=== PATIENT | male | born 1970 | race Caucasian/White ===

== ENCOUNTER 2024-12-07 13:46 | Emergency (ER) | payer MEDICAID, SELFPAY ==
[2024-12-07 14:08] VITALS: BP 127/83; PULSE 65; TEMP 36.8; O2SAT 100; BMI 23.6
--- NOTE | 2024-12-07 14:27 | XRR_ITS ---
PROCEDURE INFORMATION: Exam: XR Lumbosacral Spine Exam date and time: 12/07/2024 2:39 PM Age: 54 years old Clinical indication: Low back pain TECHNIQUE: Imaging protocol: Radiologic exam of the lumbosacral spine. Views: 2 or 3 views. COMPARISON: No relevant prior studies available. FINDINGS: Bones/joints: Spinal alignment is normal. Vertebral body height is maintained. Intervertebral disc height is maintained. Mild to moderate lower lumbar facet spondylosis. No acute fracture. The visible portion of the pelvis and sacrum is intact. Visible portions of the ribs are intact. Soft tissues: Visible soft tissues are unremarkable. XR/XR lumbar spine 2-3V* [id number] IMPRESSION: Lower lumbar facet degeneration.
--- NOTE | 2024-12-07 14:27 | W.ED.BACK ---
HPI - Back Pain/Injury General: Chief Complaint: Back Pain/Injury Stated Complaint: lower back pain Time Seen by Provider: 12/07/24 14:18 Source: patient and family Mode of arrival: ambulatory Limitations: no limitations History of Present Illness: Patient is a 54-year-old male who presents to ED today with complaint of low back pain. Patient states he first began noticing intermittent lower back discomfort approximately a year ago he feels like over the last several weeks pain has progressively worsened to where now he has constant discomfort. He states he tosses and turns all night due to significant pain in his lower back. He states he is normally very active and lower back pain has limited this. He is not having any radicular discomforts into his buttocks or lower extremities. He has not had any recent injury or trauma. Patient states he has been taking large amounts of ibuprofen without any relief in his discomfort. Patient states he does not have a primary care provider that he sees and is requesting one today. Onset (ago): week(s) Timing: constant Severity: severe Similar Symptoms Previously: Yes Location: lumbar spine Radiation: none Exacerbating factors: movement Relieving factors: none Associated symptoms: Reports no associated symptoms; Deny abdominal pain, difficulty walking, dysuria, fever(s) or hematuria Work related injury: No Related Data Previous Rx's Medication Instructions Recorded hydrocodone 5 mg-acetaminophen 325 1 tab PO Q6H PRN pain #14 tabs 12/07/24 mg tablet methylprednisolone 4 mg tablets in See Rx Instructions PO .COMPLEX 12/07/24 a dose pack (Medrol (Zion)) #21 ea Allergies Allergy/AdvReac Type Severity Reaction Status Date / Time erythromycin base Allergy ADR-Gastrointestinal Verified 12/07/24 14:14 Upset Review of Systems Const: Denies: fever(s) Card: Denies: chest pain Resp: Denies: dyspnea GI: Denies: abdominal pain : Denies: flank pain, dysuria or hematuria Musc: Reports: back pain; Denies: neck pain, extremity pain, extremity swelling, joint pain or joint swelling Neuro: Denies: numbness in extremities, weakness in extremities, sensory changes or difficulty walking Physical Exam Const: COMMON NORMALS: no acute distress, average body habitus, patient oriented x3, no limitations, healthy appearing, alert and well nourished GI: COMMON NORMALS: Normal to inspection, nondistended, normoactive bowel sounds present, Soft to palpation, non-tender and no masses PALPATION: Yes Soft to palpation : COMMON NORMALS: Yes no CVA tenderness BLADDER/KIDNEY EXAM: Yes no CVA tenderness Back/Pelvis: COMMON NORMALS: no CVA tenderness, thoracic and lumbar spine normal to inspection, thoraco-lumbar ROM normal and straight leg raise negative bilaterally LUMBAR SPINE/LOWER BACK: Yes lumbar spinal tenderness, No paraspinal muscle spasm and Yes straight leg raise negative bilaterally PELVIS: Yes buttocks normal and No sciatic notch tenderness SACROILIAC JOINTS: Yes SI joints normal SACRUM: no tenderness COCCYX: no tenderness Extremity: GENERAL: Yes normal exam except as noted Neuro: COMMON NORMALS: patient oriented x3, moves all extremities, no focal motor deficits, no sensory deficits noted and gait normal SENSORIUM/ORIENTATION: Yes alert GAIT: Yes Normal gait present MOTOR EXAM: 5/5 motor strength present throughout Course Vital Signs: Vital signs: Vital Signs Temperature 98.2 F 12/07/24 14:08 Pulse Rate 65 12/07/24 14:08 Blood Pressure 127/83 12/07/24 14:08 Pulse Oximetry 100 12/07/24 14:08 Oxygen Delivery Me thod Room Air 12/07/24 14:08 MDM - Back Pain/Injury Medical Decision Making Patient here for acute on chronic lower back pain. X-ray of his lumbar spine showing mild to moderate lower lumbar facet spondylosis. Patient states he has been taking large amounts of anti-inflammatories without any relief. He is requesting something that he can take mainly at night to help him rest. Will try steroids and give him a small amount of pain medication. I will have case management set him up with a primary care provider for further evaluation and treatment of his lower back pain. Return precautions discussed. Labs Radiology Impressions Lumbar Spine X-Ray 12/07/24 14:27 IMPRESSION: Lower lumbar facet degeneration. All radiology interpretation(s) finalized by discharge Discharge Plan Discharge Patient Disposition: Home Clinical Impression: Facet degeneration of lumbar region Condition: Stable Prescriptions: New hydrocodone-acetaminophen 5-325 mg tablet 1 tab PO Q6H PRN (Reason: pain) Qty: 14 0RF methylprednisolone [Medrol (Zion)] 4 mg tablets,dose pack See Rx Instructions .ROUTE .COMPLEX Qty: 21 0RF Rx Instructions: orally per package directions Discharge Orders: Discharge ED (Routine); Ordered 12/07/24 Ordered By: Gloria Bailon Patient Instructions: Opioid Safety, Pain Management Activity Restrictions/Additional Instructions: As we discussed, we will have you follow-up with primary care for further evaluation and treatment options regarding your lower back pain. 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
[2024-12-07 15:28] VITALS: BP 116/66; PULSE 58; O2SAT 97
--- NOTE | 2024-12-09 07:19 | DCPLANNER ---
messaged luiz to [facility] pcp
== END 2024-12-07 15:29 | disposition home or self-care (01) ==
PROVIDERS: Emergency Provider Physician Assistant
DX: M47.816 Spondylosis without myelopathy or radiculopathy, lumbar region (principal)
CPT/HCPCS: 72100; 99283

== ENCOUNTER 2025-01-02 13:00 | Emergency (ER) | payer MEDICAID, SELFPAY ==
[2025-01-02 13:05] VITALS: BP 131/84; PULSE 79; RESP 14; TEMP 36.4; O2SAT 100; BMI 30.5
[2025-01-02 13:25] LABS: Bilirubin Urine Negative (Negative); Blood Urine Negative (Negative); Glucose Urine UA Negative (Normal); Ketones Urine Negative (Negative); Leukocyte Esterase Urine Negative (Negative); Nitrate Urine Negative (Negative); Protein Urine Negative (Negative); Specific Gravity, Urine 1.021 (1.005-1.030); Urine Appearance Clear (CLEAR); Urine Color Yellow (Yellow)
[2025-01-02 13:30] LABS: Add Urine Microscopic? YES; Bacteria Urine None Seen /hpf; Hyaline Casts Urine 0-4 /lpf; RBC Urine 0-2 /hpf (0-2); Squamous Epithelial Cell Urine 0-5 /hpf (0-5); WBC Urine 0-5 /hpf (0-5)
[2025-01-02 13:36] VITALS: BP 127/78; PULSE 73; RESP 16; O2SAT 100
--- NOTE | 2025-01-02 13:43 | ED_ITS ---
HPI - Back Pain/Injury General: Chief Complaint: Back Pain/Injury Stated Complaint: back and abd pain Time Seen by Provider: 01/02/25 13:33 History of Present Illness: 54-year-old man who presents to the [facility] room with continued low back pain for the last few months. He moved down here from [place] about 3 months ago. He was seen in the emergency room for this about 3 weeks ago. He was open to get an MRI today. I discussed with him that an MRI is not available here today and is normally something for back pain that is ordered by your primary care provider. He requests provider list. No saddle numbness, no urinary retention or incontinence, no focal motor deficit, no sensory deficit. no recent fever. no cough. no shortness of breath. no chest pain. no abdominal pain. no nausea or vomiting. no dysuria. no altered mental status. no edema. Related Data Previous Rx's Medication Instructions Recorded hydrocodone 5 mg-acetaminophen 325 1 tab PO Q6H PRN pain #14 tabs 12/07/24 mg tablet methylprednisolone 4 mg tablets in See Rx Instructions PO .COMPLEX 12/07/24 a dose pack (Medrol (Zion)) #21 ea cyclobenzaprine 10 mg tablet 10 mg PO Q8H PRN muscle spasm #20 01/02/25 tabs dexamethasone 6 mg tablet 6 mg PO DAILY 5 days #5 tabs 01/02/25 diclofenac sodium 50 mg 50 mg PO BID PRN pain #14 tabs 01/02/25 tablet,delayed release tramadol 50 mg tablet 50 mg PO Q8H PRN pain #20 tabs 01/02/25 Allergies Allergy/AdvReac Type Severity Reaction Status Date / Time erythromycin base Allergy ADR-Gastrointestinal Verified 01/02/25 13:11 Upset Review of Systems Narrative: Constitutional symptoms: Negative except as documented in HPI. Skin symptoms: Negative except as documented in HPI. Eye symptoms: Negative except as documented in HPI. ENMT symptoms: Negative except as documented in HPI. Respiratory symptoms: Negative except as documented in HPI. Cardiovascular symptoms: Negative except as documented in HPI. Gastrointestinal symptoms: Negative except as documented in HPI. Genitourinary symptoms: Negative except as documented in HPI. Musculoskeletal symptoms: Negative except as documented in HPI. Neurologic symptoms: Negative except as documented in HPI. Psychiatric symptoms: Negative except as documented in HPI. Endocrine symptoms: Negative except as documented in HPI. Physical Exam Narrative: EXAM NARRATIVE: General: Alert, no acute distress. Skin: warm and dry Head: Normocephalic Neck: Trachea midline Eye: Extraocular movements are intact. Ears, nose, mouth and throat: Oral mucosa moist Respiratory: Respirations are non-labored Musculoskeletal: Normal ROM Neurological: Alert and oriented, No focal neurological deficit observed. Psychiatric: Cooperative, appropriate mood & affect. Course Vital Signs: Vital signs: Vital Signs Temperature 97.6 F 01/02/25 13:05 Pulse Rate 73 01/02/25 13:36 Respiratory Rate 16 01/02/25 13:36 Blood Pressure 127/78 01/02/25 13:36 Pulse Oximetry 100 01/02/25 13:36 Oxygen Delivery Me thod Room Air 01/02/25 13:36 MDM - Back Pain/Injury Medical Decision Making Assessment and plan: Chronic low back pain ? IM Toradol and IM Norflex and p.o. Rock in the emergency room - Discharged home - Discussed plan with patient. Answered any questions. - Evaluation and treatment of this problem were appropriate in the emergency setting. Labs Laboratory Results Urine Color Yellow (Yellow) 01/02/25 13:15 Urine Appearance Clear (CLEAR) 01/02/25 13:15 Urine pH 6.0 (5-7) 01/02/25 13:15 Ur Specific Many 1.021 (1.005-1.030) 01/02/25 13:15 Urine Protein Negative (Negative) 01/02/25 13:15 Urine Glucose (UA) Negative (Normal) 01/02/25 13:15 Urine Ketones Negative (Negative) 01/02/25 13:15 Urine Blood Negative (Negative) 01/02/25 13:15 Urine Nitrate Negative (Negative) 01/02/25 13:15 Urine Bilirubin Negative (Negative) 01/02/25 13:15 Urine Urobilinogen 1.0 mg/dL (Negative) 01/02/25 13:15 Ur Leukocyte Esterase Negative (Negative) 01/02/25 13:15 Urine RBC 0-2 /hpf (0-2) 01/02/25 13:15 Urine WBC 0-5 /hpf (0-5) 01/02/25 13:15 Ur Squamous Epith Cells 0-5 /hpf (0-5) 01/02/25 13:15 Amorphous Sediment Not Reportable 01/02/25 13:15 Urine Bacteria None seen /hpf (NONE) 01/02/25 13:15 Hyaline Casts 0-4 /lpf H 01/02/25 13:15 No radiology studies performed this visit Discharge Plan Discharge Patient Disposition: Home Clinical Impression: Lumbar radiculopathy Condition: Stable Prescriptions: New cyclobenzaprine 10 mg tablet 10 mg PO Q8H PRN (Reason: muscle spasm) Qty: 20 0RF dexamethasone 6 mg tablet 6 mg PO DAILY 5 Days Qty: 5 0RF tramadol 50 mg tablet 50 mg PO Q8H PRN (Reason: pain) Qty: 20 0RF diclofenac sodium 50 mg tablet,delayed release (DR/EC) 50 mg PO BID PRN (Reason: pain) Qty: 14 0RF No Action hydrocodone-acetaminophen 5-325 mg tablet 1 tab PO Q6H PRN (Reason: pain) Qty: 14 0RF methylprednisolone [Medrol (Zion)] 4 mg tablets,dose pack See Rx Instructions .ROUTE .COMPLEX Qty: 21 0RF Rx Instructions: orally per package directions Discharge Orders: Discharge ED (Routine); Ordered 01/02/25 Ordered By: Lynda Umanzor Discharge Diet: Usual diet Discharge Activity: Increase activity as tolerated Patient Instructions: Opioid Safety, Pain Management Activity Restrictions/Additional Instructions: Thank you for choosing [facility] for your healthcare needs today. Please realize this is an emergency room and that we are providing you with a medical screening exam and this may not be complete and all inclusive of all the testing and or work up that you may need to determine your ailment or severity of your illness. You have been screened and evaluated and felt safe for discharge. Health conditions do change or evolve sometimes and as such it is important that you follow up with your Primary Doctor to be re checked, 3-5 days is a general good time frame for follow up. 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
[2025-01-02] MEDS: orphenadrine 30 mg/mL Inj 2 mL 60 MG IM (13:49)
[2025-01-02] MEDS: HYDROcodone-acetaminophen 5-325 mg Tablet 1 TAB PO (13:49)
[2025-01-02] MEDS: ketorolac 60 mg/2 mL INJ IM (13:50)
[2025-01-02 14:06] VITALS: BP 125/79; PULSE 75; RESP 16; O2SAT 100
== END 2025-01-02 14:03 | disposition home or self-care (01) ==
PROVIDERS: Emergency Medicine; Emergency Provider Emergency Medicine
DX: M54.16 Radiculopathy, lumbar region (principal)
CPT/HCPCS: 81001; 96372; 99284; J1885; J2360